=== PATIENT | female | born 1990 | race Asian ===

== ENCOUNTER 2018-11-07 16:41 | Emergency (ER) | payer SELFPAY ==
[2018-11-07] MEDS: DEXAMETHASONE 10 MG/ML 1 ML INJ IM (18:10)
[2018-11-07] MEDS: ACETAMINOPHEN 500 MG TAB PO (18:10)
[2018-11-07] MEDS: KETOROLAC 60 MG INJ IM (18:14)
== END 2018-11-07 19:18 | disposition home or self-care (01) ==
LOC: FTE 16:41
DX: J02.0 Streptococcal pharyngitis (principal)
CPT/HCPCS: 81025; 87880; 96372; 99284-25